=== PATIENT | male | born 2000 | race Two or more races ===

== ENCOUNTER 2022-06-18 13:21 | Emergency (ER) | payer SELFPAY ==
--- NOTE | 2022-06-18 13:33 | ED.ABDPAIN ---
HPI - Abdominal Pain General Chief Complaint: Nausea/Vomiting/Diarrhea <Deysi Irizarry CNP - Last Filed: 06/18/22 13:38> Stated Complaint: abd pain <Deysi Irizarry CNP - Last Filed: 06/18/22 13:38> Time Seen by Provider: 06/18/22 14:12 <Deysi Irizarry CNP - Last Filed: 06/18/22 13:38> History of Present Illness HPI narrative: Patient complains of 2 days starting yesterday of diarrhea 3 to 5 times a day of watery brown stool without blood, as well as some stomach cramping that is intermittent and some nausea yesterday, he never vomited right now he has no cramping no pain in his abdomen, does not feel dizzy or weak, he has been tolerating p.o. fluids and solids, denies any fever Other family members in his household have the same illness, no recent travel, no camping <JASSON Huggins - Last Filed: 06/18/22 14:54> Related Data Home Medications: Previous Rx's Medication Instructions Recorded loperamide 2 mg capsule (Imodium 2 mg PO Q4H PRN loose stool #10 06/18/22 A-D) caps ondansetron HCl 4 mg tablet 4 mg PO Q6H PRN nausea and 06/18/22 vomiting #7 tabs <Deysi Irizarry CNP - Last Filed: 06/18/22 13:38> Allergies/Adverse Reactions: Allergies Allergy/AdvReac Type Severity Reaction Status Date / Time No Known Allergies Allergy Verified 06/18/22 13:33 <Deysi Irizarry CNP - Last Filed: 06/18/22 13:38> [facility] Past Medical History Source: nursing notes reviewed <JASSON Huggins - Last Filed: 06/18/22 14:54> Social History Social History: Social History Advance Directives: No Advance Directives Information Provided: No <Deysi Irizarry CNP - Last Filed: 06/18/22 13:38> Physical Exam ED Vital Signs: Vital Signs - 24 hr 06/18/22 13:34 Temperature 98.1 F Pulse Rate 85 Respiratory Rate 18 Blood Pressure 130/70 Pulse Oximetry 98 Oxygen Delivery Method Room Air BMI result Body Mass Index 21.2 <Deysi Parra JENNIE Irizarry - Last Filed: 06/18/22 13:38> Vital Signs - 24 hr 06/18/22 13:34 Temperature 98.1 F Pulse Rate 85 Respiratory Rate 18 Blood Pressure 130/70 Pulse Oximetry 98 Oxygen Delivery Method Room Air BMI result Body Mass Index 21.2 <JASSON Huggins - Last Filed: 06/18/22 14:54> General appearance comfortable relax cooperative no distress The eyes anicteric no pallor The pharynx mucous membranes are moist there is no redness swelling or exudate, voice is normal Neck is supple Chest clear to auscultation bilateral The abdomen is soft and nontender no rebound no guarding no tenderness Extremities range of motion x4 Skin no rash <JASSON Huggins - Last Filed: 06/18/22 14:54> Course Course Course Narrative: This is an RME: Additional HPI, ROS, PE not included below will be deferred to primary provider. 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 With states that as soon as he eats, it is almost immediately he has diarrhea. Has associated nausea, but no vomiting. Denies fevers/chills. He reports that there are 2 other people in his home who are ill with similar symptoms. He took a COVID test 2 days ago which was negative. Plan: Labs, viral testing, sublingual Zofran. placed back in waiting room pending bed availability <Deysi Haromerary Irizarry CNP - Last Filed: 06/18/22 13:38> This is an RME: Additional HPI, ROS, PE not included below will be deferred to primary provider. 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 With states that as soon as he eats, it is almost immediately he has diarrhea. Has associated nausea, but no vomiting. Denies fevers/chills. He reports that there are 2 other people in his home who are ill with similar symptoms. He took a COVID test 2 days ago which was negative. Plan: Labs, viral testing, sublingual Zofran. placed back in waiting room pending bed availability Patient with the complaint of mild nausea yesterday and mild intermittent cramping as well as several episodes of diarrhea today is well hydrated, tolerating p.o. has a nontender abdominal exam Chemistries, CBC and viral testing were all normal, and patient is discharged home with a work note and symptomatic relief medication <JASSON Huggins - Last Filed: 06/18/22 14:54> Medical Decision Making Lab Data MDM Lab Attestation statement: I reviewed the patient's lab results. <JASSON Huggins - Last Filed: 06/18/22 14:54> Result Diagrams: 06/18/22 14:07 06/18/22 14:07 <Deysi Irizarry CNP - Last Filed: 06/18/22 13:38> Labs: Lab Results 06/18/22 06/18/22 06/18/22 Range/Units 14:07 14:07 14:07 WBC 6.8 (4.8-10.8) X10*3/uL RBC 6.03 H (4.60-5.80) X10*6/uL Hgb 16.2 (14.0-18.0) g/dl Hct 48.8 (42.0-52.0) % MCV 80.9 (80.0-98.0) fL MCH 26.9 L (27.0-33.0) pg MCHC 33.2 (31.0-36.0) g/dl RDW 13.0 (11.0-16.0) % Plt Count 307 (160-400) X10*3/uL MPV 8.9 L (9.4-12.4) fL Immature Gran % (Auto) 0.3 (0.0-0.4) % Neut % (Auto) 65.8 (45-73) % Lymph % (Auto) 19.6 L (20-40) % [place] % (Auto) 10.9 (2-11) % Eos % (Auto) 3.1 (0-4) % Baso % (Auto) 0.3 (0-2) % Lymph # (Auto) 1.3 (1.2-4.9) X10*3/uL [place] # (Auto) 0.7 (0.1-1.2) X10*3/uL Eos # (Auto) 0.2 (0.0-0.4) X10*3/uL Baso # (Auto) 0.0 (0.0-0.2) X10*3/uL Abs Immat Gran (auto) 0.02 (0.00-0.03) X10*3/uL Absolute Neuts (auto) 4.5 (2.0-8.3) x10*3/uL Absolute Nucleated RBC 0.000 (0.0-0.012) X10*3/uL Nucleated RBC % (auto) 0.0 (0.0-0.2) /100WBC Sodium 142 (135-145) mmol/L Potassium 4.0 (3.3-5.1) mmol/L Chloride 106 (96-108) mmol/L Carbon Dioxide 27 (22-29) mmol/L Anion Gap 13 (12-20) BUN 9 (9-16) mg/dL Creatinine 0.86 (0.5-1.4) mg/dL Estim Creat Clear Calc 124.0 Estimated GFR > 60 Random Glucose 102 (60-115) mg/dL Calcium 9.4 (8.4-10.2) mg/dL Total Bilirubin 0.6 (0.0-1.0) mg/dL AST 16 (5-37) U/L ALT 20 (0-40) U/L Alkaline Phosphatase 98 (39-117) U/L Total Protein 6.9 (6.5-8.0) g/dL Albumin 4.5 (3.5-5.0) g/dL Lipase 21 (8-78) U/L COVID-19 (FRANCIS) Negative (Negative) COVID-19 Clin Com See Note Influenza Type A (SHORTY) (Negative) Influenza Type B (SHORTY) (Negative) Influenza A & B Note 06/18/22 Range/Units 14:07 WBC (4.8-10.8) X10*3/uL RBC (4.60-5.80) X10*6/uL Hgb (14.0-18.0) g/dl Hct (42.0-52.0) % MCV (80.0-98.0) fL MCH (27.0-33.0) pg MCHC (31.0-36.0) g/dl RDW (11.0-16.0) % Plt Count (160-400) X10*3/uL MPV (9.4-12.4) fL Immature Gran % (Auto) (0.0-0.4) % Neut % (Auto) (45-73) % Lymph % (Auto) (20-40) % [place] % (Auto) (2-11) % Eos % (Auto) (0-4) % Baso % (Auto) (0-2) % Lymph # (Auto) (1.2-4.9) X10*3/uL [place] # (Auto) (0.1-1.2) X10*3/uL Eos # (Auto) (0.0-0.4) X10*3/uL Baso # (Auto) (0.0-0.2) X10*3/uL Abs Immat Gran (auto) (0.00-0.03) X10*3/uL Absolute Neuts (auto) (2.0-8.3) x10*3/uL Absolute Nucleated RBC (0.0-0.012) X10*3/uL Nucleated RBC % (auto) (0.0-0.2) /100WBC Sodium (135-145) mmol/L Potassium (3.3-5.1) mmol/L Chloride (96-108) mmol/L Carbon Dioxide (22-29) mmol/L Anion Gap (12-20) BUN (9-16) mg/dL Creatinine (0.5-1.4) mg/dL Estim Creat Clear Calc Estimated GFR Random Glucose (60-115) mg/dL Calcium (8.4-10.2) mg/dL Total Bilirubin (0.0-1.0) mg/dL AST (5-37) U/L ALT (0-40) U/L Alkaline Phosphatase (39-117) U/L Total Protein (6.5-8.0) g/dL Albumin (3.5-5.0) g/dL Lipase (8-78) U/L COVID-19 (FRANCIS) (Negative) COVID-19 Clin Com Influenza Type A (SHORTY) Negative (Negative) Influenza Type B (SHORTY) Negative (Negative) Influenza A & B Note See Note <Deysi Aidamerary Irizarry, INSIGHTS STRATEGIST - Last Filed: 06/18/22 13:38> Lab Results 06/18/22 06/18/22 06/18/22 Range/Units 14:07 14:07 14:07 WBC 6.8 (4.8-10.8) X10*3/uL RBC 6.03 H (4.60-5.80) X10*6/uL Hgb 16.2 (14.0-18.0) g/dl Hct 48.8 (42.0-52.0) % MCV 80.9 (80.0-98.0) fL MCH 26.9 L (27.0-33.0) pg MCHC 33.2 (31.0-36.0) g/dl RDW 13.0 (11.0-16.0) % Plt Count 307 (160-400) X10*3/uL MPV 8.9 L (9.4-12.4) fL Immature Gran % (Auto) 0.3 (0.0-0.4) % Neut % (Auto) 65.8 (45-73) % Lymph % (Auto) 19.6 L (20-40) % [place] % (Auto) 10.9 (2-11) % Eos % (Auto) 3.1 (0-4) % Baso % (Auto) 0.3 (0-2) % Lymph # (Auto) 1.3 (1.2-4.9) X10*3/uL [place] # (Auto) 0.7 (0.1-1.2) X10*3/uL Eos # (Auto) 0.2 (0.0-0.4) X10*3/uL Baso # (Auto) 0.0 (0.0-0.2) X10*3/uL Abs Immat Gran (auto) 0.02 (0.00-0.03) X10*3/uL Absolute Neuts (auto) 4.5 (2.0-8.3) x10*3/uL Absolute Nucleated RBC 0.000 (0.0-0.012) X10*3/uL Nucleated RBC % (auto) 0.0 (0.0-0.2) /100WBC Sodium 142 (135-145) mmol/L Potassium 4.0 (3.3-5.1) mmol/L Chloride 106 (96-108) mmol/L Carbon Dioxide 27 (22-29) mmol/L Anion Gap 13 (12-20) BUN 9 (9-16) mg/dL Creatinine 0.86 (0.5-1.4) mg/dL Estim Creat Clear Calc 124.0 Estimated GFR > 60 Random Glucose 102 (60-115) mg/dL Calcium 9.4 (8.4-10.2) mg/dL Total Bilirubin 0.6 (0.0-1.0) mg/dL AST 16 (5-37) U/L ALT 20 (0-40) U/L Alkaline Phosphatase 98 (39-117) U/L Total Protein 6.9 (6.5-8.0) g/dL Albumin 4.5 (3.5-5.0) g/dL Lipase 21 (8-78) U/L COVID-19 (FRANCIS) Negative (Negative) COVID-19 Clin Com See Note Influenza Type A (SHORTY) (Negative) Influenza Type B (SHROTY) (Negative) Influenza A & B Note 06/18/22 Range/Units 14:07 WBC (4.8-10.8) X10*3/uL RBC (4.60-5.80) X10*6/uL Hgb (14.0-18.0) g/dl Hct (42.0-52.0) % MCV (80.0-98.0) fL MCH (27.0-33.0) pg MCHC (31.0-36.0) g/dl RDW (11.0-16.0) % Plt Count (160-400) X10*3/uL MPV (9.4-12.4) fL Immature Gran % (Auto) (0.0-0.4) % Neut % (Auto) (45-73) % Lymph % (Auto) (20-40) % [place] % (Auto) (2-11) % Eos % (Auto) (0-4) % Baso % (Auto) (0-2) % Lymph # (Auto) (1.2-4.9) X10*3/uL [place] # (Auto) (0.1-1.2) X10*3/uL Eos # (Auto) (0.0-0.4) X10*3/uL Baso # (Auto) (0.0-0.2) X10*3/uL Abs Immat Gran (auto) (0.00-0.03) X10*3/uL Absolute Neuts (auto) (2.0-8.3) x10*3/uL Absolute Nucleated RBC (0.0-0.012) X10*3/uL Nucleated RBC % (auto) (0.0-0.2) /100WBC Sodium (135-145) mmol/L Potassium (3.3-5.1) mmol/L Chloride (96-108) mmol/L Carbon Dioxide (22-29) mmol/L Anion Gap (12-20) BUN (9-16) mg/dL Creatinine (0.5-1.4) mg/dL Estim Creat Clear Calc Estimated GFR Random Glucose (60-115) mg/dL Calcium (8.4-10.2) mg/dL Total Bilirubin (0.0-1.0) mg/dL AST (5-37) U/L ALT (0-40) U/L Alkaline Phosphatase (39-117) U/L Total Protein (6.5-8.0) g/dL Albumin (3.5-5.0) g/dL Lipase (8-78) U/L COVID-19 (FRANCIS) (Negative) COVID-19 Clin Com Influenza Type A (SHORTY) Negative (Negative) Influenza Type B (SHORTY) Negative (Negative) Influenza A & B Note See Note <JASSON Huggins - Last Filed: 06/18/22 14:54> Medications Administered Discontinued Medications Generic Name Dose Route Start Last Admin Trade Name Freq PRN Reason Stop Dose Admin Ondansetron HCl 4 mg 06/18/22 13:37 06/18/22 14:13 Ondansetron Odt 4 Mg Tab.Rapdis TRANSLINGU 06/18/22 13:38 Not Given ONCE ONE <Deysi Irizarry CNP - Last Filed: 06/18/22 13:38> Medications Administered Discontinued Medications Generic Name Dose Route Start Last Admin Trade Name Freq PRN Reason Stop Dose Admin Ondansetron HCl 4 mg 06/18/22 13:37 06/18/22 14:13 Ondansetron Odt 4 Mg Tab.Ryan LICONAU 06/18/22 13:38 Not Given ONCE ONE <JASSON Huggins - Last Filed: 06/18/22 14:54> Discharge Plan Discharge Patient Disposition: Home, Self-Care <Deysi Irizarry CNP - Last Filed: 06/18/22 13:38> Additional Instructions: Diarrhea is usually caused by a virus and this usually passes in2- 3 days You can use Imodium as needed for diarrhea, maximum 4 doses a day Most important is stay hydrated so drink plenty of fluids If you do develop nausea I wrote you for the nausea medicine Zofran but you know needed if you are not nauseous Return any time for any worse condition or any concerns <Deysi Irizarry CNP - Last Filed: 06/18/22 13:38> Prescriptions: New loperamide [Imodium A-D] 2 mg capsule 2 mg PO Q4H PRN (Reason: loose stool) Qty: 10 0RF Rx Instructions: administer after each loose stool until symptoms controlled; do not exceed 8 mg per 24 hrs ondansetron HCl 4 mg tablet 4 mg PO Q6H PRN (Reason: nausea and vomiting) Qty: 7 0RF <Deysi Irizarry CNP - Last Filed: 06/18/22 13:38> Stand Alone Forms: Work/School Release <Deysi Irizarry CNP - Last Filed: 06/18/22 13:38>
[2022-06-18 13:34] VITALS: BP 130/70; PULSE 85; RESP 18; TEMP 36.7; O2SAT 98; BMI 21.2
[2022-06-18 14:13] LABS: MANUAL DIFF FLAG NO
[2022-06-18 14:15] LABS: Basophils Percent Auto 0.3 % (0-2); Eosinophils Absolute Auto 0.2 X10*3/uL (0.0-0.4); Eosinophils Percent Auto 3.1 % (0-4); Hematocrit 48.8 % (42.0-52.0); Hemoglobin 16.2 g/dl (14.0-18.0); Imm Gran Abs Auto 0.02 X10*3/uL (0.00-0.03); Imm Gran Pct Auto 0.3 % (0.0-0.4); Lymphocytes Absolute Auto 1.3 X10*3/uL (1.2-4.9); Lymphocytes Percent Auto 19.6 % (20-40); Mean Corpuscular HGB Conc 33.2 g/dl (31.0-36.0); Mean Corpuscular Hemoglobin 26.9 pg (27.0-33.0); Mean Corpuscular Volume 80.9 fL (80.0-98.0); Mean Platelet Volume 8.9 fL (9.4-12.4); Monocytes Absolute Auto 0.7 X10*3/uL (0.1-1.2); Monocytes Percent Auto 10.9 % (2-11); Neutrophils Absolute Auto 4.5 x10*3/uL (2.0-8.3); Neutrophils Percent Auto 65.8 % (45-73); Platelet Count 307 X10*3/uL (160-400); Red Blood Count 6.03 X10*6/uL (4.60-5.80); White Blood Count 6.8 X10*3/uL (4.8-10.8)
[2022-06-18 14:33] LABS: Alanine Aminotransferase 20 U/L (0-40); Albumin Level 4.5 g/dL (3.5-5.0); Alkaline Phosphatase 98 U/L (39-117); Anion Gap 13 (12-20); Aspartate Amino Transferase 16 U/L (5-37); Bilirubin Total 0.6 mg/dL (0.0-1.0); Blood Urea Nitrogen 9 mg/dL (9-16); Calcium 9.4 mg/dL (8.4-10.2); Carbon Dioxide 27 mmol/L (22-29); Chloride 106 mmol/L (96-108); Estimated Glomerular Filt Rate > 60; Glucose Random 102 mg/dL (60-115); Lipase 21 U/L (8-78); Sodium 142 mmol/L (135-145); Total Protein 6.9 g/dL (6.5-8.0)
[2022-06-18 14:35] LABS: COVID-19 Test Negative (Negative); IDNOW Serial# 55D5AD1C; IDNOW Serial# 9DB6401D; Influenza A Negative (Negative); Influenza B2 Negative (Negative)
== END 2022-06-19 05:17 | disposition home or self-care (01) ==
PROVIDERS: Nurse Practitioner Family
DX: R19.7 Diarrhea, unspecified (principal); Z20.822 Contact with and (suspected) exposure to COVID-19
CPT/HCPCS: 80053; 83690; 85025; 87502; 87635; 99282; 99283

== ENCOUNTER 2023-05-02 22:22 | Emergency (ER) | payer SELFPAY ==
--- NOTE | 2023-05-02 | ECG_ITS ---
Test Reason : VOMITING Blood Pressure : / mmHG Vent. Rate : 094 BPM Atrial Rate : 094 BPM P-R Int : 144 ms QRS Dur : 102 ms QT Int : 340 ms P-R-T Axes : 080 042 018 degrees QTc Int : 425 ms Normal sinus rhythm Normal ECG No previous ECGs available Referred By: Generic ED Physician Electronically Signed By:KHANH GOLDEN
[2023-05-02 22:27] VITALS: BP 124/58; PULSE 108; RESP 28; TEMP 35.6; O2SAT 96; BMI 23.0
[2023-05-02 22:50] VITALS: BP 123/72; PULSE 93; RESP 15; O2SAT 100
[2023-05-02 23:03] LABS: Basophils Percent Auto 0.2 % (0-2); Eosinophils Absolute Auto 0.2 X10*3/uL (0.0-0.4); Hematocrit 43.1 % (42.0-52.0); Hemoglobin 14.7 g/dl (14.0-18.0); Imm Gran Abs Auto 0.08 X10*3/uL (0.00-0.03); Imm Gran Pct Auto 0.5 % (0.0-0.4); Lymphocytes Absolute Auto 0.8 X10*3/uL (1.2-4.9); Lymphocytes Percent Auto 5.5 % (20-40); MANUAL DIFF FLAG SCAN; Mean Corpuscular HGB Conc 34.1 g/dl (31.0-36.0); Mean Corpuscular Hemoglobin 27.1 pg (27.0-33.0); Mean Corpuscular Volume 79.5 fL (80.0-98.0); Mean Platelet Volume 9.3 fL (9.4-12.4); Monocytes Absolute Auto 0.3 X10*3/uL (0.1-1.2); Neutrophils Absolute Auto 13.9 x10*3/uL (2.0-8.3); Neutrophils Percent Auto 90.8 % (45-73); Platelet Count 222 X10*3/uL (160-400); Red Blood Count 5.42 X10*6/uL (4.60-5.80); Red Cell Distribution Width 13.2 % (11.0-16.0); SCAN SMEAR FLAG 1; White Blood Count 15.3 X10*3/uL (4.8-10.8)
[2023-05-02 23:21] LABS: Anion Gap 16 (12-20)
[2023-05-02 23:25] LABS: SLIDE REVIEW VERIFIED
--- NOTE | 2023-05-02 23:31 | ED.NAVMDI ---
HPI - Nausea/Vomiting/Diarrhea General Chief complaint: Nausea/Vomiting/Diarrhea Stated complaint: body feels tense Time Seen by Provider: 05/02/23 23:20 Source: patient Mode of arrival: ambulatory Limitations: language barrier History of Present Illness HPI Narrative: 22-year-old male who presents emergency department for evaluation of nausea, vomiting, diarrhea facial numbness and carpal pedal spasm. Patient states that he became sick earlier today with nausea vomiting and diarrhea. He states that he has vomited at least 3-4 times at least 3-4 episodes of diarrhea. He has not noticed any blood in the emesis or diarrhea. He states that he did have fever and chills. He has had a slight cough which is nonproductive. He said chest pain shortness of breath. Prior to coming to emergency department he states he tried to vomit but was unsuccessful. He then developed numbness in his face, he states he was unable to talk. He then developed carpal pedal spasms. When he got to the emergency department he lowered himself to the floor in the waiting room. Patient states that he still has nausea in feels like a has to move his bowels but the other hyperventilation syndrome symptoms have resolved. Related Data Previous Rx's Medication Instructions Recorded loperamide 2 mg capsule (Imodium 2 mg PO Q4H PRN loose stool #10 06/18/22 A-D) caps ondansetron HCl 4 mg tablet 4 mg PO Q6H PRN nausea and 06/18/22 vomiting #7 tabs nirmatrelvir 300 mg (150 mg See Rx Instructions PO .COMPLEX 05/03/23 x2)-ritonavir 100 mg tablet,dose #30 ea pack (Paxlovid) ondansetron 4 mg disintegrating 4 mg PO Q6-8H PRN nausea and 05/03/23 tablet vomiting #14 tabs Allergies Allergy/AdvReac Type Severity Reaction Status Date / Time No Known Allergies Allergy Verified 05/02/23 22:26 Review of Systems Review of Systems: Yes all other systems are reviewed and are negative [facility] Past Medical History [facility] Narrative: Past medical history: None. Social history: He does smoke cigarettes. Denies tobacco use. He denies alcohol use. Social History Social History Advance Directives: No Advance Directives Information Provided: No Physical Exam Vital Signs: Vital Signs: Last Vital Signs Temp 96.1 F L 05/02/23 22:27 Pulse 93 05/02/23 22:50 Resp 15 05/02/23 22:50 BP 123/72 05/02/23 22:50 Pulse Ox 100 05/02/23 22:50 O2 Del Method Room Air 05/02/23 22:50 BMI result Body Mass Index 23.0 Vital signs were normal. Exam: General: Awake, alert in no distress Head: Normocephalic, atraumatic EENT: PERRL, Lids normal, sclera normal, conjunctiva normal, nose normal , ears normal, throat without erythema or exudates Neck: Supple, no adenopathy, no trachea midline or C-spine tenderness Lung: breath sounds symmetric, no wheezing, rales or rhonchi Chest: symmetric movement, nontender Heart: regular rate and rhythm, normal S1, S2 no murmurs or rubs Abdomen: soft, non-tender, nondistended, normal bowel sounds Back: no vertebral tenderness, no CVAT Extremities: no deformities, moves all extremities symmetrically Neuro: Awake, alert, oriented, normal speech, cranial nerves intact, moves all extremities symmetrically Psych: Pleasant, cooperative Medications Administered Discontinued Medications Generic Name Dose Route Start Last Admin Trade Name Freq PRN Reason Stop Dose Admin Sodium Chloride 1,000 mls @ 999 mls/hr 05/02/23 23:30 05/02/23 23:55 Ns IV 05/03/23 00:30 999 mls/hr .Q1H1M STA Administration Lorazepam 1 mg 05/02/23 23:30 05/02/23 23:54 Lorazepam 2 Mg/Ml Vial IVPUSH 05/02/23 23:31 1 mg STAT STA Administration Ondansetron HCl 4 mg 05/02/23 23:30 05/02/23 23:54 Ondansetron Hcl 4 Mg/2 Ml Vial IVPUSH 05/02/23 23:31 4 mg ONCE ONE Administration Medical Decision Making Medical Decision Making [facility] Narrative: 22-year-old male who presents emergency department for evaluation of nausea, vomiting, diarrhea facial numbness and carpal pedal spasm and near syncope. Patient's symptoms started today. Patient's symptoms are consistent with a viral syndrome and hyperventilation syndrome. Patient's vital signs were normal. Exam was unremarkable. Following evaluation was ordered: CBC, CMP, COVID-19, influenza, RSV Following medications were ordered and normal saline x1 L, Ativan 1 mg IV, Zofran 4 mg IV 00:50 My independent interpretation patient's laboratory evaluation is as follows: Elevated WBC 71625. Low potassium 3.0. Elevated glucose 122. RSV and influenza negative. COVID-19 positive. Patient is feeling better after above treatment. Patient is only had 2 COVID vaccinations therefore he will be started on Paxlovid. Also given prescription for Zofran ODT. He was given printed and verbal instructions and discharged home. Differential Diagnosis Differential Diagnoses: The differential diagnosis associated with the presentation includes Differential diagnosis includes was not limited to viral syndrome, COVID-19, influenza, RSV, electrolyte abnormalities, anemia, hyperventilation syndrome, COVID-19, RSV, influenza Admission/Observation Consideration of admission/observation: Escalation of care including admission/observation considered Lab Data [facility] [place] Lab Attestation statement: I reviewed the patient's lab results. See [facility] 05/02/23 22:58 05/02/23 22:58 Labs: Lab Results 05/02/23 Range/Units 22:58 WBC 15.3 H (4.8-10.8) X10*3/uL RBC 5.42 (4.60-5.80) X10*6/uL Hgb 14.7 (14.0-18.0) g/dl Hct 43.1 (42.0-52.0) % MCV 79.5 L (80.0-98.0) fL MCH 27.1 (27.0-33.0) pg MCHC 34.1 (31.0-36.0) g/dl RDW 13.2 (11.0-16.0) % Plt Count 222 D (160-400) X10*3/uL MPV 9.3 L (9.4-12.4) fL Immature Gran % (Auto) 0.5 H (0.0-0.4) % Neut % (Auto) 90.8 H (45-73) % Lymph % (Auto) 5.5 L (20-40) % [place] % (Auto) 2.0 (2-11) % Eos % (Auto) 1.0 (0-4) % Baso % (Auto) 0.2 (0-2) % Lymph # (Auto) 0.8 L (1.2-4.9) X10*3/uL [place] # (Auto) 0.3 (0.1-1.2) X10*3/uL Eos # (Auto) 0.2 (0.0-0.4) X10*3/uL Baso # (Auto) 0.0 (0.0-0.2) X10*3/uL Abs Immat Gran (auto) 0.08 H (0.00-0.03) X10*3/uL Absolute Neuts (auto) 13.9 H (2.0-8.3) x10*3/uL Absolute Nucleated RBC 0.000 (0.0-0.012) X10*3/uL Nucleated RBC % (auto) 0.0 (0.0-0.2) /100WBC Smear Tech's Comments VERIFIED Sodium 138 (135-145) mmol/L Potassium 3.0 L D (3.3-5.1) mmol/L Chloride 104 (96-108) mmol/L Carbon Dioxide 19 L (22-29) mmol/L Anion Gap 16 (12-20) BUN 9 (9-16) mg/dL Creatinine 0.80 (0.5-1.4) mg/dL Estim Creat Clear Calc 115.5 Estimated GFR > 60 Random Glucose 121 H (60-115) mg/dL Calcium 9.2 (8.4-10.2) mg/dL Total Bilirubin 0.6 (0.0-1.0) mg/dL AST 19 (5-37) U/L ALT 18 (0-40) U/L Alkaline Phosphatase 82 (39-117) U/L Total Protein 7.0 (6.5-8.0) g/dL Albumin 4.5 (3.5-5.0) g/dL Influenza Type A (PCR) NEGATIVE (Negative) Influenza Type B (PCR) NEGATIVE (Negative) RSV RNA Qual (PCR) NEGATIVE (Negative) SARS-CoV-2 RNA (RT-PCR) POSITIVE A (Negative) Independent Interpretation I performed an independent interpretation of an: EKG Interpretation: My independent interpretation patient's 12 EKG done at 00:17 hours is as follows: Normal sinus rhythm with a rate of 94, normal WA interval, prolonged QRS duration of 102 milliseconds, normal QTC interval of 425 milliseconds, no ST segment elevation, no ST segment depression, no T-wave abnormalities, no PACs, no PVCs-this is a normal EKG Independent Historian Clinical information obtained from an independent historian. History obtained from or confirmed by: Other (Significant other) Prescription Management I considered prescription management with: Antiviral and Other (Anti emetics) Discharge Plan Discharge Clinical Impression: COVID-19, Acute hyperventilation syndrome Vomiting Qualifiers: Vomiting type: unspecified Nausea presence: with nausea Qualified Code(s): R11.2 - Nausea with vomiting, unspecified Diarrhea Qualifiers: Diarrhea type: unspecified type Qualified Code(s): R19.7 - Diarrhea, unspecified Patient Disposition: Home, Self-Care Instructions: COVID-19 (Coronavirus Disease 2019) (ED) Additional Instructions: Your COVID-19 test was positive. Your symptoms are caused by the COVID-19 viral infection. Take Paxlovid as prescribed for 5 days. Take ibuprofen 200 mg pills, 2 pills every 6 hours as needed for pain or fever. Take Tylenol (acetaminophen) 500 mg pills, 2 pills every 6 hours as needed for pain or fever. Take Zofran ODT 4 mg pills, 1 pill dissolved in your mouth every 8 hours as needed for nausea and vomiting. Follow-up with your doctor in 2 days. Please return to the emergency department if your symptoms get worse or if you develop any symptoms that are concerning to you. Prescriptions: New ondansetron 4 mg tablet,disintegrating 4 mg PO Q6-8H PRN (Reason: nausea and vomiting) Qty: 14 0RF Paxlovid 300 mg (150 mg x 2)-100 mg tablets,dose pack See Rx Instructions PO .COMPLEX Qty: 30 0RF Rx Instructions: take TWO 150 mg tablets of nirmatrelvir with ONE 100 mg tablet of ritonavir twice daily for 5 days No Action loperamide [Imodium A-D] 2 mg capsule 2 mg PO Q4H PRN (Reason: loose stool) Qty: 10 0RF Rx Instructions: administer after each loose stool until symptoms controlled; do not exceed 8 mg per 24 hrs ondansetron HCl 4 mg tablet 4 mg PO Q6H PRN (Reason: nausea and vomiting) Qty: 7 0RF Print Language: Urdu
[2023-05-02 23:34] LABS: Alanine Aminotransferase 18 U/L (0-40); Albumin Level 4.5 g/dL (3.5-5.0); Alkaline Phosphatase 82 U/L (39-117); Aspartate Amino Transferase 19 U/L (5-37); Bilirubin Total 0.6 mg/dL (0.0-1.0); Blood Urea Nitrogen 9 mg/dL (9-16); Calcium 9.2 mg/dL (8.4-10.2); Carbon Dioxide 19 mmol/L (22-29); Chloride 104 mmol/L (96-108); Creatinine Clr Calc Pharmacy 115.5; Estimated Glomerular Filt Rate > 60; Glucose Random 121 mg/dL (60-115); Sodium 138 mmol/L (135-145)
[2023-05-02 23:41] LABS: Influenza A PCR NEGATIVE (Negative); Influenza B PCR NEGATIVE (Negative); Resp Syncy Virus RNA Qual PCR NEGATIVE (Negative); SARS COV2 PCR INHOUSE POSITIVE (Negative)
[2023-05-02] MEDS: ondansetron HCL 4 MG/2 ML VIAL IVPUSH (23:54)
[2023-05-02] MEDS: LORazepam 2 MG/ML VIAL 1 MG IVPUSH (23:54)
[2023-05-02] MEDS: 0.9 % Sodium Chloride 1,000 ML 999 ML IV (23:55)
== END 2023-05-03 01:10 | disposition home or self-care (01) ==
PROVIDERS: Emergency Provider Emergency Medicine Emergency Medical Services
DX: U07.1 COVID-19 (principal); R11.2 Nausea with vomiting, unspecified; F45.8 Other somatoform disorders; Z79.899 Other long term (current) drug therapy
CPT/HCPCS: 0241U; 80053; 85025; 93005; 96374; 96375; 99284; 99285; J2060; J2405

== ENCOUNTER → 2023-05-02 23:31 | Outpatient (BNV) | payer SELFPAY | PROVIDERS: Emergency Provider Emergency Medicine Emergency Medical Services; Visit Provider Internal Medicine | DX: R07.9 Chest pain, unspecified (principal) | CPT/HCPCS: 93010 ==